=== PATIENT | female | born 1970 | race Caucasian/White ===

== ENCOUNTER → 2020-08-11 | Outpatient (CLI) | payer BC | LOC: M.LAB 11:21 | PROVIDERS: ATTEND Surgery | DX: Z01.812 Encounter for preprocedural laboratory examination (principal); D17.24 Benign lipomatous neoplasm of skin and subcutaneous tissue of left leg; E87.6 Hypokalemia; Z20.822 Contact with and (suspected) exposure to COVID-19 ==